=== PATIENT | female | born 1980 | race Hispanic/Latino ===

== ENCOUNTER 2020-06-28 10:54 | Outpatient (CLI) | payer BC ==
--- NOTE | 2020-06-28 14:18 | Magnetic Resonance Report ---
MR brain wo/w con INDICATION / CLINICAL INFORMATION: 40 years Female; MENINGIOMA. TECHNIQUE: Multiplanar, multisequence MR images of the brain were obtained. COMPARISON: None available. FINDINGS: POST-SURGICAL CHANGES: Hardware artifact seen in the right frontal region, presumably related to prio r craniotomy in this region. There may be mild encephalomalacia in the anterior temporal lobe on the right. BRAIN / INTRACRANIAL CONTENTS: No definitive signs of residual or recurrent hemangioma appreciated on the right. Small focus of enhancement is seen adjacent to the superior sagittal sinus and falx cereb ri leftward of midline, anteriorly-small meningioma in this region suspected, which measures approxim ately 8 mm in maximum dimension. Otherwise, no acute hemorrhage, mass effect, midline shift, hydrocephalus, or acute, large territori al infarct. No chronic infarct or atrophy. No significant white matter abnormality. CRANIOCERVICAL JUNCTION: No significant abnormality. VASCULAR FLOW-VOIDS: No significant abnormality. ORBITS: No significant abnormality of visualized orbits. SINUSES / MASTOIDS: No significant abnormality in the visualized paranasal sinuses or mastoid air jorge l ls. ADDITIONAL FINDINGS: None. IMPRESSION: 1. Postoperative changes as described above. 2. Very small meningioma seen along the anterior margin of the falx cerebri leftward of midline. 3. Otherwise, no focal intra-axial mass, hemorrhage, hydrocephalus, or ischemia seen. Signer Name: Primo Whitman MD, III Signed: 06/28/2020 2:14 PM Workstation Name: [email or web address]
== END 2020-06-28 10:55 | disposition home or self-care (01) ==
LOC: MRI 10:54
DX: D32.0 Benign neoplasm of cerebral meninges (principal)
CPT/HCPCS: 70553; A9577

== ENCOUNTER 2021-01-04 12:58 | Emergency (ER) | payer BC ==
--- NOTE | 2021-01-04 13:19 | Emergency Department Report ---
HPI - General Time Seen by Provider: 01/04/21 13:00 - [facility] HPI: Room 24 Patient is a 40-year-old female present with a chief complaint of near syncope. The patient is an employee here at [employer] and states she is just received her Covid vaccination ([employer]). The patient states approximately 10 minutes after the vaccination she noticed everything was spinning. Patient states she developed a dull pain in her jaw which then radiated to her chest was associated with shortness of breath and nausea. Patient states she never lost consciousness. Patient denies any history of vomiting or diarrhea. Patient states the chest discomfort has been intermittent and she currently gives it a score of 1/10. 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) Hx Psychiatric Treatment: Yes (Panic attacks) Additional medical history: Renal colic - Surgical History Additional Surgical History: Right globe enucleation, kidney stone removal, brain tumor resection, , loop recorder placement - Family History Family history: no significant - Social History Smoking Status: Never Smoker Substance Use Type: Alcohol (Occasional) ED Review of Systems ROS: Stated complaint: CHEST PAIN ,DRY MOUTH,COVID VACINE Other details as noted in HPI Constitutional: no symptoms reported Eyes: denies: eye pain ENT: denies: throat pain Respiratory: shortness of breath Cardiovascular: chest pain Endocrine: no symptoms reported Gastrointestinal: nausea. denies: vomiting, diarrhea Genitourinary: denies: dysuria Musculoskeletal: denies: back pain Neurological: other (Lightheadedness) Physical Exam - Physical Exam Physical Exam: GENERAL: The patient is well-developed well-nourished female lying on stretcher not appearing to be in acute distress. [] HEENT: Normocephalic. Atraumatic. Extraocular motion intact. Patient has moist mucous membranes. Right globe enucleation NECK: Supple. Trachea midline CHEST/LUNGS: Clear to auscultation. There is no respiratory distress noted. HEART/CARDIOVASCULAR: Regular. There is no tachycardia. There is no gallop rub or murmur. ABDOMEN: Abdomen is soft, nontender. Patient has normal bowel sounds. There is no abdominal distention. SKIN: There is no rash. There is no edema. There is no diaphoresis. NEURO: The patient is awake, alert, and oriented. The patient is cooperative. The patient has no focal neurologic deficits. The patient has normal speech MUSCULOSKELETAL: There is no evidence of acute injury. ED Course - Reevaluation(s) Reevaluation #1: 01/04/21 15:17 Patient states she feels like her normal self. Patient currently asymptomatic. Updated on labs. Will repeat troponin at 1600 if negative patient to be discharged ED Medical Decision Making - Lab Data Result diagrams: 01/04/21 13:21 01/04/21 13:21 Laboratory Tests 01/04/21 01/04/21 01/04/21 13:21 13:21 13:21 WBC 8.9 RBC 4.79 Hgb 12.5 Hct 37.4 MCV 78 L MCH 26 L MCHC 34 RDW 15.6 H Plt Count 316 Lymph % (Auto) 27.2 [place] % (Auto) 4.7 Eos % (Auto) 3.6 Baso % (Auto) 1.2 Lymph # (Auto) 2.4 [place] # (Auto) 0.4 Eos # (Auto) 0.3 Baso # (Auto) 0.1 Seg Neutrophils % 63.3 Seg Neutrophils # 5.6 PT 13.3 INR 0.86 L Sodium 137 Potassium 3.8 Chloride 102.7 Carbon Dioxide 22 Anion Gap 16 BUN 11 Creatinine 0.7 Estimated GFR > 60 BUN/Creatinine Ratio 16 Glucose 156 H Calcium 8.6 Total Creatine Kinase 122 CK-MB (CK-2) 1.8 CK-MB (CK-2) Rel Index 1.4 Troponin T < 0.010 01/04/21 16:11 WBC RBC Hgb Hct MCV MCH MCHC RDW Plt Count Lymph % (Auto) [place] % (Auto) Eos % (Auto) Baso % (Auto) Lymph # (Auto) [place] # (Auto) Eos # (Auto) Baso # (Auto) Seg Neutrophils % Seg Neutrophils # PT INR Sodium Potassium Chloride Carbon Dioxide Anion Gap BUN Creatinine Estimated GFR BUN/Creatinine Ratio Glucose Calcium Total Creatine Kinase CK-MB (CK-2) CK-MB (CK-2) Rel Index Troponin T < 0.010 - EKG Data -: EKG Interpreted by Mn EKG shows normal: sinus rhythm Rate: normal - EKG Data When compared to previous EKG there are: previous EKG unavailable Interpretation: other (No ischemic changes seen) - Radiology Data Radiology results: report reviewed (Chest x-ray), image reviewed (Chest x-ray) interpreted by me: Chest x-ray-no focal infiltrates, no pneumothorax. [facility] [address] [place] [address] XRay Report Signed Patient: FROILAN ALVARADO I MR#: [id number] 65 : 1980 Acct:[id number] Age/Sex: 40 / F ADM Date: 01/04/21 Loc: ED Attending Dr: Ordering Physician: RICO MIKE MD Date of Service: 01/04/21 Procedure(s): XR chest 1V ap Accession Number(s): [id number] cc: RICO MIKE MD Fluoro Time In Minutes: XR chest 1V ap INDICATION / CLINICAL INFORMATION: chest pain TOSHIA RISON: None available. FINDINGS: SUPPORT DEVICES: Loop recorder. HEART / MEDIASTINUM: No significant abnormality. LUNGS / PLEURA: Lungs are clear. Costophrenic sulci are sharp. No pneumothorax. ADDITIONAL FINDINGS: No significant additional findings. IMPRESSION: 1. No acute findings. Signer Name: Mikal Garcia MD Signed: 01/04/2021 3:18 PM Workstation Name: [id number] Transcribed By: CS Dictated By: Mikal Garcia MD Electronically Authenticated By: Mikal Garcia MD Signed Date/Time: 01/04/211517 DD/ 17 TD/TT: Print Cancel - Differential Diagnosis Vasovagal episode, panic attack, ACS, GERD, Critical care attestation.: If time is entered above; I have spent that time in minutes in the direct care of this critically ill patient, excluding procedure time. ED Disposition Clinical Impression: Atypical chest pain, Anxiety Disposition: DC-01 TO HOME OR SELFCARE Is pt being admited?: No Does the pt Need Aspirin: No Condition: Stable Instructions: Panic Attack, [id number], Nonspecific Chest Pain, Adult Additional Instructions: Return to the emergency department should you develop worsening symptoms, inability to tolerate food or liquids, high fever or any other concerns Referrals: JENNIFER SMITH [Other] - 3-5 Days
[2021-01-04 13:54] VITALS: BP 142/83
[2021-01-04 13:54] LABS: Basophils # (Auto) 0.1 K/mm3 (0.0-0.1); Basophils % (Auto) 1.2 % (0.0-1.8); Eosinophils # (Auto) 0.3 K/mm3 (0.0-0.4); Eosinophils % (Auto) 3.6 % (0.0-4.3); Hematocrit 37.4 % (30.3-42.9); Hemoglobin 12.5 gm/dl (10.1-14.3); Lymphocytes # (Auto) 2.4 K/mm3 (1.2-5.4); Lymphocytes % (Auto) 27.2 % (13.4-35.0); Mean Corpuscular HGB Conc 34 % (30-34); Mean Corpuscular Volume 78 fl (79-97); Monocytes # (Auto) 0.4 K/mm3 (0.0-0.8); Monocytes % (Auto) 4.7 % (0.0-7.3); Platelet Count 316 K/mm3 (140-440); Red Blood Count 4.79 M/mm3 (3.65-5.03); Red Cell Distribution Width 15.6 % (13.2-15.2)
[2021-01-04 14:11] LABS: INR 0.86 (0.87-1.13)
[2021-01-04 14:17] LABS: Creatine Kinase MB 1.8 ng/mL (0.0-4.0)
[2021-01-04 14:20] LABS: Blood Urea Nitrogen 11 mg/dL (7-17); Calcium 8.6 mg/dL (8.4-10.2); Hemolysis Index 12
[2021-01-04 14:23] LABS: BUN/Creatinine Ratio 16
[2021-01-04] MEDS: SODIUM CHLORIDE 0.9% 1000 ML 1,000 ML IV ONE ×2 (14:48→15:15)
--- NOTE | 2021-01-04 15:22 | XRay Report ---
XR chest 1V ap INDICATION / CLINICAL INFORMATION: chest pain COMPARISON: None available. FINDINGS: SUPPORT DEVICES: Loop recorder. HEART / MEDIASTINUM: No significant abnormality. LUNGS / PLEURA: Lungs are clear. Costophrenic sulci are sharp. No pneumothorax. ADDITIONAL FINDINGS: No significant additional findings. IMPRESSION: 1. No acute findings. Signer Name: Mikal Garcia MD Signed: 01/04/2021 3:18 PM Workstation Name: [id number]
--- NOTE | 2021-01-06 09:54 | Electrocardiograph Report ---
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
== END 2021-01-04 17:58 | disposition home or self-care (01) ==
LOC: ED 12:58
DX: R07.89 Other chest pain (principal); R55 Syncope and collapse; F41.9 Anxiety disorder, unspecified; Z86.69 Personal history of other diseases of the nervous system and sense organs; Z98.890 Other specified postprocedural states; Z72.89 Other problems related to lifestyle; Z79.899 Other long term (current) drug therapy
CPT/HCPCS: 36415; 71045; 80048; 82550; 82553; 84484; 85025; 85610; 93005; 96360; 99284; J7030

== ENCOUNTER 2021-01-19 09:40 | Outpatient (CLI) | payer BC ==
--- NOTE | 2021-01-19 13:09 | PET Report ---
PET/CT HISTORY: C69.20 /C41.9/D42.0. Retinoblastoma, meningioma, chondrosarcoma TECHNIQUE: The patient's fasting blood glucose was 120. The patient weighed 250 lbs. The patient w as injected with 15.1 mCi of FDG in the left wrist at 1016 hours and imaging was started at 1101 hour s. The patient was imaged from the top of the skull through the femurs. All CT scans at this [facility] are performed using CT dose reduction for ALARA by means of automated exposure control. Images were reviewed on a workstation. COMPARISON: None at this facility FINDINGS: BRAIN: Physiologic FDG uptake. NECK: Physiologic FDG uptake. CHEST WALL: Physiologic FDG uptake. MEDIASTINUM: Physiologic FDG uptake. LUNGS: Physiologic FDG uptake. HEPATOBILIARY: Physiologic FDG uptake. PANCREAS: Physiologic FDG uptake. SPLEEN: Physiologic FDG uptake. KIDNEYS/BLADDER: Physiologic FDG uptake. 3 mm calyceal stone is noted in the superior left kidney. N o hydronephrosis. ADRENAL GLANDS: Physiologic FDG uptake. GI/MESENTERY: Physiologic FDG uptake. Gastric surgical sleeve changes are suspected. PELVIC VISCERA: Physiologic FDG uptake. LYMPH NODES: Physiologic FDG uptake. OSSEOUS STRUCTURES: An approximate 1 cm lucent well-defined bony lesion is identified in the distal left femur with evidence of previous surgical changes, correlate with history. The bone lesion is hyp ometabolic with max SUV measuring 2.1. There is mild soft tissue uptake surrounding the distal left f emur with max SUV measuring up to 2.8 which is presumably postsurgical in nature. There is no evidenc e for soft tissue mass or bony destruction/periostitis. ADDITIONAL FINDINGS: None. IMPRESSION: Negative PET CT. No evidence for metastatic disease. Surgical site in the distal left femur as descr ibed. Signer Name: Richard Jackson Jr, MD Signed: 01/19/2021 1:04 PM Workstation Name: [id number]
== END 2021-01-19 09:41 | disposition home or self-care (01) ==
LOC: PET 09:40
PROVIDERS: ATTEND Orthopaedic Surgery
DX: C69.20 Malignant neoplasm of unspecified retina (principal); C41.9 Malignant neoplasm of bone and articular cartilage, unspecified; D42.0 Neoplasm of uncertain behavior of cerebral meninges
CPT/HCPCS: 78815; 82962; A9552

== ENCOUNTER 2021-02-03 09:15 | Outpatient (CLI) | payer BC ==
[2021-02-03] MEDS ORDERED: dexAMETHasone 4 MG/ML VIAL IV ONE (10:00)
== END 2021-02-03 09:16 | disposition home or self-care (01) ==
LOC: LTAOUT 09:15
PROVIDERS: ATTEND Obstetrics & Gynecology
DX: R21 Rash and other nonspecific skin eruption (principal)
CPT/HCPCS: 96365; J1100